=== PATIENT | female | born 1945 | race Caucasian/White ===

== ENCOUNTER 2017-06-11 15:39 | Emergency (ER) | payer OTHER ==
[~2017-06-11] VITALS: Ht 149.9 cm; Wt 78.5 kg
[~2017-06-11 15:39] MED LIST: ALBU2.5V3 NEB; ALBU8.5H3 INH; AMLO-147 PO; ASPI81TA50 PO; BECL8.7A5 INH; GABA300C PO; HYDR25TA6 PO; INSU100I14 SC; LEVO50TA83 PO; LORA-186 PO; LOSA50TA2 PO; LYR75 PO; MICO45CR68 VAG; MOME0.132 IH; MTF1000T PO; OMEP40CA6 PO; TRAM50TA2 PO
[2017-06-11 15:40] VITALS: Ht 149.9 cm; Wt 78.5 kg
[2017-06-11] MEDS ORDERED: ONDANSETRON 4 MG INJ IV STA (19:31)
[2017-06-11] MEDS ORDERED: morphine 4 MG/ML VIAL IV STA (19:31)
[2017-06-11 19:58] LABS: BASOPHIL # 0.1 10^3/ul (0.0-0.1); BASOPHILS % 0.9 % (0.0-2.0); EOSINOPHILS # 0.1 10^3/ul (0.0-0.5); EOSINOPHILS % 1.6 % (0.0-7.0); HEMATOCRIT 39.3 % (37.0-47.0); HEMOGLOBIN 13.7 g/dl (12.0-16.0); LYMPHOCYTES # 3.1 10^3/ul (0.8-2.9); LYMPHOCYTES % 35.1 % (15.0-51.0); MEAN CORPUSCULAR HGB CONC 34.9 g/dl (32.0-37.0); MEAN CORPUSCULAR VOLUME 83.1 fl (82.0-101.0); MEAN PLATELET VOLUME 11.8 fl (7.4-10.4); MONOCYTE # 0.6 10^3/ul (0.3-0.9); MONOCYTES % 6.5 % (0.0-11.0); NEUTROPHIL # 4.9 10^3/ul (1.6-7.5); NEUTROPHILS % 55.4 % (39.0-77.0); PLATELET COUNT 271 10^3/UL (140-415); RED BLOOD COUNT 4.73 10^6/ul (4.20-5.40); RED CELL DISTRIBUTION WIDTH 13.8 % (11.5-14.5); WHITE BLOOD COUNT 8.9 10^3/ul (4.8-10.8)
[2017-06-11 20:03] LABS: ADD UMIC YES; UR ASCORBIC ACID NEGATIVE (NEGATIVE); UR BILIRUBIN (Dip) NEGATIVE (NEGATIVE); UR BLOOD (Dip) NEGATIVE (NEGATIVE); UR CLARITY CLEAR (CLEAR); UR COLOR YELLOW (YELLOW); UR GLUCOSE (Dip) 3+ mg/dL (NEGATIVE); UR KETONES (Dip) NEGATIVE (NEGATIVE); UR LEUKOCYTE ESTERASE (Dip) NEGATIVE Leu/ul (NEGATIVE); UR NITRITE (Dip) NEGATIVE (NEGATIVE); UR RBC 0 /HPF (0-5); UR TOTAL PROTEIN (Dip) 2+ mg/dl (NEGATIVE); UR UROBILINOGEN (Dip) NEGATIVE (NEGATIVE)
[2017-06-11] MEDS ORDERED: LOSA50TA2 PO (20:09)
[2017-06-11] MEDS ORDERED: METF1000 PO (20:09)
[2017-06-11] MEDS ORDERED: AMLO-147 PO (20:09)
[2017-06-11] MEDS ORDERED: TRAM50TA2 PO (20:10)
[2017-06-11] MEDS ORDERED: NYST15CR16 TOP (20:14)
[2017-06-11] MEDS ORDERED: LEVO50TA83 PO (20:14)
[2017-06-11 20:15] LABS: ALBUMIN 4.7 g/dl (3.3-4.9); ALBUMIN/GLOBULIN RATIO 1.06; BILIRUBIN,INDIRECT 0.2 mg/dl (0-1.1); BILIRUBIN,TOTAL 0.2 mg/dl (0.2-1.3); CALCIUM 9.2 mg/dl (8.4-10.2); CREATININE 0.87 mg/dl (0.44-1.00); TOTAL PROTEIN 9.1 g/dl (6.1-8.1)
[2017-06-11] MEDS ORDERED: ALBU2.5V3 NEB (20:15)
[2017-06-11] MEDS ORDERED: MOME0.132 INHALATION (20:16)
[2017-06-11] MEDS ORDERED: ASPI-664 PO (20:16)
[2017-06-11] MEDS ORDERED: LORA-186 PO (20:17)
[2017-06-11] MEDS ORDERED: DIPH25CA6 PO (20:17)
[2017-06-11 20:18] LABS: INR 0.92; PROTIME 12.4 Sec (12.2-14.2)
[2017-06-11 20:19] LABS: PARTIAL THROMBOPLASTIN TIME 32.3 Sec (25.0-35.0)
[2017-06-11] MEDS ORDERED: INSU100C SQ (20:19)
[2017-06-11] MEDS ORDERED: LANT3I SC (20:19)
[2017-06-11] MEDS ORDERED: OMEP40CA6 PO (20:20)
[2017-06-11] MEDS ORDERED: LYR75 PO (20:20)
[2017-06-11] MEDS ORDERED: ALBU18HF INHALATION (20:21)
--- NOTE | 2017-06-11 20:22 | ERA ---
ER Documentation Chief Complaint Date/Time DATE: 06/11/17 TIME: 20:15 Chief Complaint abd pain with nausea x 2 weeks HPI This is a very pleasant 71-year-old English-speaking female with a known history of insulin-dependent diabetes mellitus and hypertension. The past 7 days she indicates she has been having severe epigastric pain that radiates to the right upper quadrant and the tip of her right scapula. She indicates that the pain occurs shortly after she eats or drinks. Prior to this she states she has never had any similar symptoms. There is no alleviating factors to the pain. She has had no fevers or shaking or chills. She denies any chest pain or pressure that radiates to the neck arm back or jaw. She denies any lower abdominal pain and no frequency urgency or dysuria. ROS All systems reviewed and are negative except as per history of present illness. Medications Home Meds Active Scripts Sucralfate* (Carafate*) 1 Gm Tab, 1 GM PO AC MEALS AND BEDTIME, #60 TAB Prov:LUCA JOHNSON 06/11/17 Reported Medications Albuterol Sulfate* (Ventolin HFA*) 18 Gm Hfa.aer.ad, 2 PUFF INHALATION Q4H, #1 INHALER 06/11/17 Omeprazole* (Omeprazole*) 40 Mg Capsule.dr, 40 MG PO DAILY, #30 CAP 06/11/17 Pregabalin* (Lyrica*) 75 Mg Capsule, 75 MG PO BID, CAP 06/11/17 Insulin Glargine* (Lantus*) 100 Unit/Ml Soln, 60 UNIT SC QHS, #1 VIAL 06/11/17 Insulin Lispro (Humalog) 100 Unit/1 Ml Cartridge, 15 UNIT SQ BID 06/11/17 Diphenhydramine Hcl* (Diphenhydramine Hcl*) 25 Mg Capsule, 25 MG PO Q6 Y for ITCHING, CAP 06/11/17 Loratadine* (Claritin*) 10 Mg Tablet, 10 MG PO DAILY, TAB 06/11/17 Aspirin* (Aspirin* EC) 81 Mg Tablet.dr, 81 MG PO DAILY, TAB 06/11/17 Mometasone Furoate* (Asmanex*) 110 Mcg/Inh - 7 Act Aer.pow.ba, 1 PUFF INHALATION QHS, #1 INHALER 06/11/17 Albuterol Sulfate* (Albuterol Sulfate* Neb) 0.083%-3 Ml Neb, 2.5 MG NEB Q8H Y for WHEEZING AND SOB, #30 VIAL 06/11/17 Levothyroxine Sodium* (Synthroid*) 50 Mcg Tablet, 50 MCG PO BEFORE BREAKFAST, # 30 TAB 06/11/17 Nystatin-Triamcinolone* (Nystatin-Triamcinolone* Cream) 15 Gm Cream.gm., 1 APPLIC TOP TID, #1 TUB 06/11/17 Tramadol HCl (Tramadol HCl) 50 Mg Tablet, 50 MG PO QPM Y for PRN, #30 TAB 06/11/17 Losartan Potassium* (Cozaar*) 50 Mg Tablet, 50 MG PO DAILY, #30 TAB 06/11/17 Amlodipine Besylate* (Amlodipine Besylate*) 10 Mg Tablet, 10 MG PO DAILY, #30 TAB 06/11/17 Metformin Hcl* (Metformin Hcl*) 1,000 Mg Tablet, 1000 MG PO WITH BREAKFAST DINNE , #60 TAB 06/11/17 Discontinued Reported Medications Pregabalin* (Lyrica*) 75 Mg Capsule, 75 MG PO BID, CAP 01/17/15 Mometasone Furoate* (Asmanex*) 110 Mcg/Inh - 7 Act Aer.pow.ba, 1 PUFF IH HS, INH 01/17/15 Levothyroxine Sodium* (Synthroid*) 50 Mcg Tablet, 50 MCG PO DAILY, TAB 01/17/15 Insulin Lispro (Humalog) 100 U/Ml Insuln.pen, 2-10 UNIT SC TID, EA 01/17/15 Miconazole Nitrate* (Monistat 7*) 45 Gm Cream.appl, 1 APPFUL VAG HS, TUB 01/17/15 Albuterol Sulfate* (Proair HFA*) 8.5 Gm Hfa.aer.ad, 2 PUFF INH Q4-6 HOURS Y for WHEEZING AND SOB, INH 01/17/15 Omeprazole* (Omeprazole*) 40 Mg Capsule.dr, 40 MG PO DAILY, CAP 01/17/15 Gabapentin* (Neurontin*) 300 Mg Capsule, 300 MG PO TID, CAP 01/17/15 Losartan Potassium* (Cozaar*) 50 Mg Tablet, 50 MG PO DAILY, TAB 01/17/15 Loratadine* (Claritin*) 10 Mg Tablet, 10 MG PO DAILY, TAB 01/17/15 Albuterol Sulfate* (Albuterol Sulfate* Neb) 0.083%-3 Ml Neb, 2.5 MG NEB TID Y for WHEEZING AND SOB, EA 01/17/15 Beclomethasone Dip* (Qvar 80*) 7.3 Gm Inha, 2 PUFF INH BID, INH 01/17/15 Aspirin (Aspir-Low) 81 Mg Tablet.dr, 81 MG PO 01/15/13 Hydrochlorothiazide (Hydrochlorothiazide) 25 Mg Tablet, 25 MG PO DAILY 01/15/13 Metformin* (Glucophage*) 1,000 Mg Tablet, 1000 MG PO BID 01/15/13 Amlodipine Besylate* (Amlodipine Besylate*) 10 Mg Tablet, 10 MG PO DAILY 01/15/13 Tramadol HCl (Tramadol HCl) 50 Mg Tablet, 50 MG PO PRN 01/15/13 Allergies Allergies: Coded Allergies: Penicillins (Verified Allergy, Unknown, 06/11/17) codeine (Verified Allergy, Unknown, 06/11/17) PMhx/Soc History of Surgery: Yes (back surgery, hysterectomy, right arm surgery) Anesthesia Reaction: No Hx Neurological Disorder: No Hx Respiratory Disorders: No Hx Cardiac Disorders: No Hx Psychiatric Problems: No Hx Miscellaneous Medical Probl: Yes (diabetes, hypertension, asthma, gastritis) Hx Alcohol Use: No Hx Substance Use: No Hx Tobacco Use: No Smoking Status: Never smoker Physical Exam Vitals Vital Signs Date Time Temp Pulse Resp B/P Pulse Ox O2 Delivery O2 Flow Rate FiO2 06/11/17 15:40 98.8 98 20 138/77 100 Physical Exam Constitutional:Well-developed. Well-nourished. HEENT:Normocephalic. Atraumatic.Pupils were equal round reactive to light. Moist mucous membranes.No tonsillar exudates. Neck: No nuchal rigidity. No lymphadenopathy. No posterior cervical spine tenderness or step-offs. Respiratory: Not using accessory muscles of respiration.Lungs were clear to auscultation bilaterally. No rhonchi. No rales. No wheezing. Cardiovascular: Regular rate regular rhythm.No murmurs. No rubs were appreciated.S1, S2 normal. Distal pulses are palpable 2+ bilaterally. GI: Abdomen was soft. Tenderness in the right upper quadrant with negative Noland sign. Non Distended. No pulsatile abdominal masses or bruits. No rebound. No guarding. Bowel sounds were present and normal. No tenderness in the right lobe and over McBurney's point. Psoas sign negative. Obturator sign negative. Muscle skeletal: Full range of motion of both the upper and lower extremities bilaterally.Normal muscle tone.No asymmetrical calf tenderness or swelling. Skin: No petechia, no purpura. No lesions on the palms or the soles of the feet. No maculopapular rash. NEURO: Patient was alert, awake, orientated x3.No facial droop. Gait observed and normal with no ataxia.Speech had regular rate and rhythm. No focal neurological deficits. Result Diagram: 06/11/17194206/11/172018 Results 24 hrs Laboratory Tests Test 06/11/17 19:10 06/11/17 19:43 06/11/17 20:19 06/11/17 22:08 Bedside Glucose 326mg/dL 245mg/dL White Blood Count 8.910^3/ul Red Blood Count 4.7310^6/ul Hemoglobin 13.7g/dl Hematocrit 39.3% Mean Corpuscular Volume 83.1fl Mean Corpuscular Hemoglobin 29.0pg Mean Corpuscular Hemoglobin Concent 34.9g/dl Red Cell Distribution Width 13.8% Platelet Count 48649^3/UL Mean Platelet Volume 11.8fl Neutrophils % 55.4% Lymphocytes % 35.1% Monocytes % 6.5% Eosinophils % 1.6% Basophils % 0.9% Nucleated Red Blood Cells % 0.0/100WBC Neutrophils # 4.910^3/ul Lymphocytes # 3.110^3/ul Monocytes # 0.610^3/ul Eosinophils # 0.110^3/ul Basophils # 0.110^3/ul Nucleated Red Blood Cells # 0.010^3/ul Prothrombin Time 12.4Sec Prothrombin Time Ratio 1.0 INR International Normalized Ratio 0.92 Activated Partial Thromboplast Time 32.3Sec Urine Color YELLOW Urine Clarity CLEAR Urine pH 5.0 Urine Specific [place] 1.020 Urine Ketones NEGATIVEmg/dL Urine Nitrite NEGATIVEmg/dL Urine Bilirubin NEGATIVEmg/dL Urine Urobilinogen NEGATIVEmg/dL Urine Leukocyte Esterase NEGATIVELeu/ul Urine Microscopic RBC 0/HPF Urine Microscopic WBC 0/HPF Urine Hemoglobin NEGATIVEmg/dL Urine Glucose 3+mg/dL Urine Total Protein 2+mg/dl Sodium Level 138mmol/L 141mmol/L Potassium Level 6.0mmol/L 4.4mmol/L Chloride Level 98mmol/L 99mmol/L Carbon Dioxide Level 27mmol/L 28mmol/L Anion Gap 19 18 Blood Urea Nitrogen 18mg/dl 16mg/dl Creatinine 0.87mg/dl 0.82mg/dl Glucose Level 319mg/dl 267mg/dl Calcium Level 9.2mg/dl 9.5mg/dl Total Bilirubin 0.2mg/dl Direct Bilirubin 0.00mg/dl Indirect Bilirubin 0.2mg/dl Aspartate Amino Transf (AST/SGOT) 61IU/L Alanine Aminotransferase (ALT/SGPT) 26IU/L Alkaline Phosphatase 84IU/L Troponin I 0.017ng/ml Total Protein 9.1g/dl Albumin 4.7g/dl Globulin 4.40g/dl Albumin/Globulin Ratio 1.06 Amylase Level 85U/L Lipase 128U/L Current Medications Medications (Trade) Dose Ordered Sig/Marcell Route PRN Reason Start Time Stop Time Status Last Admin Dose Admin Morphine Sulfate (morphine) 4 mg ONCE STAT IV 06/11/17 19:31 06/11/17 19:34 DC 06/11/17 20:44 Ondansetron HCl (Zofran Inj) 4 mg ONCE STAT IV 06/11/17 19:31 06/11/17 19:34 DC 06/11/17 20:44 Famotidine (Pepcid Iv) 20 mg ONCE STAT IV 06/11/17 21:26 06/11/17 21:33 DC 06/11/17 22:10 Miscellaneous Medication (Gi Cocktail (2)) 40 ml ONCE STAT PO 06/11/17 21:26 06/11/17 21:33 DC 06/11/17 22:10 Belladonna/ Phenobarbital () 2 tab ONCE STAT PO 06/11/17 21:26 06/11/17 21:33 DC 06/11/17 22:10 Insulin Human Lispro (Humalog) 5 unit ONCE STAT SC 06/11/17 21:54 06/11/17 21:58 DC 06/11/17 22:09 Procedures/MDM The patient presented to the emergency department with epigastric pain. My differential diagnosis included but was not limited to abdominal aortic aneurysm , choledocholithiasis, gallstone ileus, renal colic, pyelonephritis, pancreatitis, peptic ulcer disease, atypical myocardical infarction, mesenteric ischemia, GERD, pulmonary infarction. The patient was placed on a night monitor, continuous pulse oximetry and IV access was established by nursing staff. Patient received intravenous morphine and Zofran for analgesic control An EKG was obtained to rule out myocardial ischemia. There was no elevation of LFTs to suggest ductal obstruction, cholangitis, cholecystiitis or hepatitis. Given that the urinalysis did not show bilirubinuria, my suspicion for common duct obstruction or hepatitis was low. 12 Lead EKG tracing ordered and reviewed by myself showed: Normal sinus rhythm of 77 bpm and no arrhythmia. [place] interval normal. QRS duration normal. No ST segment elevation No ST segment depression. No changes consistent with acute ischemia. The patient had no evidence of urinary tract infection. The patient had an ultrasound the gallbladder which showed no evidence of cholelithiasis. The patient received a GI cocktail with viscous lidocaine and Maalox and had significant improvement of her symptoms. I did indicate to the patient and her daughter that she would benefit from an outpatient upper endoscopy as I could not rule out peptic ulcer disease. The patient had a potassium was elevated at 6.0. She has no renal failure. However I repeated this as I could not rule out possible lab error and was normal at 4.0. The patient had no signs of severe hyperkalemia and no peak T waves on the EKG and therefore I did feel she can be safely discharged as her symptoms are completely resolved and follow-up with her PCP. The patient was discharged home in fair condition. They were instructed to return to the emergency department at any time if there was any worsening of their condition. The patient stated they would follow up with their PCP in the next 24-48 hours to initiate a suitable medication regimen under the care of their PCP as well as to allow their PCP to monitor any drug reactions. The patient was discharged home with prescriptions after they gave informed consent to the new medication. They were also fully informed by myself on the adverse effects and adverse drug interactions in order to provide adequate safeguards to prevent possible adverse reactions to medications. Departure Diagnosis: Primary Impression: Epigastric pain Additional Impressions: Hyperkalemia Hyperglycemia without ketosis Condition: Fair ALEX,LUCA Jun 11, 2017 20:22
[2017-06-11 20:26] LABS: TROPONIN-I 0.017 ng/ml (0.00-0.12)
--- NOTE | 2017-06-11 21:18 | RADRPT ---
PROCEDURE: Right upper quadrant abdominal ultrasound. CLINICAL INDICATION: Abdominal pain TECHNIQUE: Shelby scale and color doppler ultrasound images of the right upper quadrant of the abdom en. COMPARISON: 07/29/2007 FINDINGS: Pancreas: Not adequately visualized due to overlying bowel gas. Liver: Morphology: The right lobe of the liver is elongated measuring up to 18.5 cm which may reflect Shantel del's lobe configuration. No evidence of contour nodularity. Echogenicity: Increased echogenicity of the liver parenchyma suggestive of hepatic steatosis. Focal lesions: None. Main portal vein: Patent with hepatopetal flow. Biliary System: Normal appearing gallbladder wall. No gallstones seen. No intrahepatic biliary dilatation. Common bile duct measures 2.5 mm in maximal dimension. Kidneys: Right 11.4 cm in length. Right renal cortical thickness is preserved. Normal echogenicity. No hydronephrosis. No renal calculi. No focal lesions. No free fluid identified. IMPRESSION: Normal gallbladder without gallstones. Increased echogenicity of the liver parenchyma suggestive of hepatic steatosis. RPTAT: AADD .Woo Ma MD, MD Date Time Electronically viewed and signed by .Woo Ma MD, on 06/11/2017 21:17 .B/
[2017-06-11] MEDS ORDERED: BELLADONNA/PHENOBARBITAL TAB PO STA (21:26)
[2017-06-11] MEDS ORDERED: LIDOCAINE/MYLANTA 40 ML BTL PO STA (21:26)
[2017-06-11] MEDS ORDERED: FAMOTIDINE 20 MG INJ IV STA (21:26)
[2017-06-11] MEDS ORDERED: INSULIN LISPRO 100 UNIT/ML VIAL SC STA (21:54)
[2017-06-11] MEDS ORDERED: SUCR1TAB56 PO (22:53)
[2017-06-11 23:04] LABS: CALCIUM 9.5 mg/dl (8.4-10.2); CREATININE 0.82 mg/dl (0.44-1.00); POTASSIUM 4.4 mmol/L (3.5-5.1)
[2017-06-11 23:50] VITALS: BP 135/68; PULSE 82; RESP 18; TEMP 98.1
== END 2017-06-11 23:50 | disposition home or self-care (01) ==
LOC: E/R 15:39
DX: R10.13 Epigastric pain (principal); E87.5 Hyperkalemia; E11.65 Type 2 diabetes mellitus with hyperglycemia; I10 Essential (primary) hypertension; J45.909 Unspecified asthma, uncomplicated; Z79.4 Long term (current) use of insulin; Z79.82 Long term (current) use of aspirin; Z79.84 Long term (current) use of oral hypoglycemic drugs
CPT/HCPCS: 76705; 80048; 80053; 81001; 82150; 82962; 83690; 84484; 85025; 85610; 85730; 87086; 93005; 96372; 96374; 96375; 99285; J1815; J2270; J2405

== ENCOUNTER 2018-05-10 20:29 | Emergency (ER) | END 2018-05-11 01:10 | disposition home or self-care (01) ==